=== PATIENT | female | born 1975 | race African-American/Black ===

== ENCOUNTER 2016-10-24 15:31 | Emergency (ER) | payer OTHER | END 2016-10-24 15:35 | disposition home or self-care (01) | LOC: CFTX 15:31 | DX: H65.93 Unspecified nonsuppurative otitis media, bilateral (principal); J45.909 Unspecified asthma, uncomplicated; F17.210 Nicotine dependence, cigarettes, uncomplicated | CPT/HCPCS: 99282 ==